=== PATIENT | female | born 1960 | race Two or more races ===

== ENCOUNTER 2024-06-07 19:13 | Emergency (ER) | payer OTHER, SELFPAY ==
[2024-06-07 19:14] VITALS: BMI 29.2
[2024-06-07 19:56] VITALS: BP 158/93; PULSE 65; RESP 16; TEMP 36.6; O2SAT 98
--- NOTE | 2024-06-07 20:01 | XR_ITS ---
Examination: CT brain head without contrast. 2-D sagittal coronal reconstructions Date and time of exam:June 07, 20242020 hrs. Indications: Patient fell today with injury to the head, head pain CTDI: vol (mGy):45.3 DLP: (mGycm):941 Technique: Multiple CT axial sections of the brain have been obtained, 5 mm slice thickness. Contrast has not been administered. 2-D sagittal, coronal reconstructions have been obtained Low dose protocols were performed. One or more of the following dose reduction techniques were used; automated exposure control, adjustment of the mA and/or KV according to patient size, use of iterative reconstruction technique. Findings: No significant ventricular enlargement. Intra-axial or extra-axial hemorrhage density is not seen. No mass effect or midline shift Basal cisterns are not remarkable. Fourth ventricle is midline. Cranial vault intact. Impression: Negative for acute hemorrhage, mass effect or midline shift
--- NOTE | 2024-06-07 20:01 | XR_ITS ---
Examination: CT cervical spine without contrast 2-D sagittal reconstructions 2-D coronal reconstructions 3-D reconstructions. Exam date and time:June 07, 2024 2019 hrs. Indications: Patient fell today with injury to the neck, neck pain CTDI:vol (mGy) 14.1 DLP: (mGycm) 343 Technique: Multiple 2 mm axial sections of the cervical spine have been obtained. The coronal and sagittal reconstructions have been obtained. 3-D reconstructions have been obtained. Low dose protocols were performed. One or more of the following dose reduction techniques were used; automated exposure control, adjustment of the mA and/or KV according to patient size, use of iterative reconstruction technique. Findings: Axial sections demonstrate intact base of the skull. C1 exhibit satisfactory relationship to the odontoid. No acute cervical vertebral body fracture seen. Alignment posterior spinous processes satisfactory. Impression: No acute cervical fracture.
--- NOTE | 2024-06-07 20:01 | XR_ITS ---
Examination: CT chest, without intravenous contrast. Sagittal and coronal 2-D reconstructions. Exam date and time: June 07, 20242020 hrs. Indications: Patient fell today with injury to the right chest, right chest and rib pain CTDI:vol (mGy) 19.9 DLP: (mGycm) 780 Technique: Multiple 3.0 mm axial sections of the chest to been obtained. Bone and lung density settings are obtained. Sagittal and coronal 2-D reconstructions have been obtained. Low dose protocols were performed. One or more of the following dose reduction techniques were used; automated exposure control, adjustment of the mA and/or KV according to patient size, use of iterative reconstruction technique. Findings: Thoracic aorta pulmonary arteries intact AP dimension ascending thoracic area for a 4.3 cm No pneumothorax pulmonary contusion or hemothorax No hemopericardium The manubrium and the body the sternum are intact Satisfactory alignment thoracic vertebral bodies No acute thoracic fracture Acute nondisplaced fracture right fifth sixth ribs anteriorly No visualized liver splenic or renal laceration Visualized abdominal aorta appears intact with no free blood noted in the abdomen Impression: Acute nondisplaced fractures right fifth sixth ribs anteriorly Thoracic aorta pulmonary arteries appear intact on this noncontrast study No hemopericardium, pneumothorax, pulmonary contusion or hemothorax
--- NOTE | 2024-06-07 20:01 | PD.EDRME ---
Rapid Medical Screening Exam [facility] Arrival date/time: 06/07/24 19:13 63F with history of HTN, hypothyroidism, and pre-DM presents to ED with R rib/chest pain and SOB after trip and fall. Chief Complaint: Fall Vital signs: Vital Signs Temperature 98 F 06/07/24 19:56 Pulse Rate 65 06/07/24 19:56 Respiratory Rate 16 06/07/24 19:56 Blood Pressure 158/93 H 06/07/24 19:56 Pulse Oximetry (%) 98 06/07/24 19:56 Oxygen Delivery Method Room Air 06/07/24 19:56
--- NOTE | 2024-06-07 22:04 | PD.EDFALL ---
ED Fall Injury RME/HPI General Chief Complaint: Fall Stated Complaint: RIGHT SIDE RIB PAIN S/P Arrival date/time: 06/07/24 19:13 RME / HPI RME / HPI Narrative: 06/07/24 19:13 63F with history of HTN, hypothyroidism, and pre-DM presents to ED with R rib/chest pain and SOB after trip and fall. ----- Dr. Valentin?s Main ED Evaluation: 63yo female presents to the ED for a fall. 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 She states she was cleaning the shower and when she went to step out of it, she tripped and fell, landing on her right side. She endorses having right rib pain, reporting she had difficulty getting up and her client had to help her get up. She decided to come in for evaluation. She endorses taking ibuprofen, which has helped with her pain. She states she has difficulty taking a deep breath. She denies any extremity pain, headache, neck pain or any other associated symptoms. No known allergies. Related Data Previous Rx's ?Medication ?Instructions ?Recorded lidocaine 5 % topical patch 1 patch topical QDAY #15 ea 06/08/24 Allergies Allergy/AdvReac Type Severity Reaction Status Date / Time No Known Allergies Allergy Verified 06/07/24 19:18 Review of Systems Review of Systems Systems Reviewed: All systems reviewed, normal except as documented Narrative Review of Systems: Gen: No fever, no chills, no weight loss EYES: No discharge, no visual changes, no pain HEENT: No ear pain, no congestion, no sore throat PULM: No shortness of breath, no cough, no congestion CV: No chest pain, no dyspnea on exertion, no palpitations GI: No nausea, no vomiting, no diarrhea, no pain, no constipation : No frequency, no urgency, no dysuria Musc/skel: No joint pain, no back pain, + rib pain Skin: No rash Psyc: No hallucinations, no depression Heme/Lymph: No easy bleeding or bruising tendencies Neuro: No weakness, no headache Past Medical History Social History SMOKING STATUS: Never smoker ED Exam Narrative Physical exam: GENERAL APPEARANCE: alert and oriented x 4, well-developed, well-nourished, no acute distress HEENT: Normocephalic, atraumatic; pupils equal, round, reactive to light; EOMI; mucous membranes pink, moist; oropharynx clear NECK: Supple LUNGS: CTABL; no wheezes, no rales, no rhonchi HEART: Regular rate, regular rhythm; normal S1, S2; no murmurs ABDOMEN: non distended; normal BS; soft, tenderness to the right rib area, no guarding, no rebound; no masses, no organomegaly, no hernia BACK: no CVA tenderness EXTREMITIES: atraumatic; no edema NEUROLOGIC: awake; alert and oriented x4; cranial nerves II-XII grossly intact; no focal sensory or motor deficits PSYCHIATRIC: appropriate mood and affect SKIN: warm, dry, normal color; no rashes Course Quality Measures none Orders Category Date Time Status CT cervical spine wo con Stat Exams 06/07/24 20:[address] chest wo con Stat Exams 06/07/24 20:[address] head/brain wo con Stat Exams 06/07/24 20:01 Completed HYDROcodone*/APAP 5/325 [[place] 5/325] Med 06/08/24 00:48 Discontinued 1 tab PO X1 ONE Lidocaine 5% Patch Med 06/08/24 00:53 Discontinued 1 patch TOP X1 ONE Vital Signs Vital signs: Vital Signs Temperature 98 F 06/07/24 19:56 Pulse Rate 65 06/07/24 19:56 Respiratory Rate 16 06/07/24 19:56 Blood Pressure 158/93 H 06/07/24 19:56 Pulse Oximetry (%) 98 06/07/24 19:56 Oxygen Delivery Method Room Air 06/07/24 19:56 Pulse ox is 98% on room air, which is normal according to my interpretation. Fall MDM Narrative MDM Narrative:: Incentive spirometry provided Patient data External records reviewed:: [facility] previous records (Per chart review, patient has no previous ED visits or admissions to this facility.) Clinical information provided by:: patient Social determinants that could affect healthcare access:: none Patient has the following chronic illnesses:: none How is presenting disease/condition affected by chronic disease/condition?: no chronic disease Evaluation data The following diagnostics were reviewed and interpreted by me:: radiology exam(s) Lab and/or radiology exams considered but not ordered:: none Interpretation Summary: [facility] Signed Patient: MECHE GUEVARA [facility]. Record#: [id number] Birthdate: 1960 Age/Sex: 63 / F Location: [facility] Attending Dr: Ordering Physician: Gurjit Aguirre PA-C Date of Service: 06/07/24 Procedure(s): CT cervical spine wo con Accession Number(s): [id number] cc: Tyshawn Stephens MD; NO PRIMARY/FAMILY,PHYSICIAN; Gurjit Aguirre PA-C~ Examination: CT cervical spine without contrast 2-D sagittal reconstructions 2-D coronal reconstructions 3-D reconstructions. Exam date and time:June 07, 2024 2019 hrs. Indications: Patient fell today with injury to the neck, neck pain CTDI:vol (mGy) 14.1 DLP: (mGycm) 343 Technique: Multiple 2 mm axial sections of the cervical spine have been obtained. The coronal and sagittal reconstructions have been obtained. 3-D reconstructions have been obtained. Low dose protocols were performed. One or more of the following dose reduction techniques were used; automated exposure control, adjustment of the mA and/or KV according to patient size, use of iterative reconstruction technique. Findings: Axial sections demonstrate intact base of the skull. C1 exhibit satisfactory relationship to the odontoid. No acute cervical vertebral body fracture seen. Alignment posterior spinous processes satisfactory. Impression: No acute cervical fracture. Dictated By: Tyshawn Stephens MD Signed By: <Electronically signed by Tyshawn Stephens MD in OV> 06/07/242108 [facility] Signed Patient: MECHE GUEVARA Record#: [id number] Birthdate: 1960 Age/Sex: 63 / F Location: [facility] Attending Dr: Ordering Physician: Gurjit Aguirre PA-C Date of Service: 06/07/24 Procedure(s): CT chest wo con Accession Number(s): [id number] cc: Tyshawn Stephens MD; NO PRIMARY/FAMILY,PHYSICIAN; Gurjit Aguirre PA-C~ Examination: CT chest, without intravenous contrast. Sagittal and coronal 2-D reconstructions. Exam date and time: June 07, 20241 hrs. Indications: Patient fell today with injury to the right chest, right chest and rib pain CTDI:vol (mGy) 19.9 DLP: (mGycm) 780 Technique: Multiple 3.0 mm axial sections of the chest to been obtained. Bone and lung density settings are obtained. Sagittal and coronal 2-D reconstructions have been obtained. Low dose protocols were performed. One or more of the following dose reduction techniques were used; automated exposure control, adjustment of the mA and/or KV according to patient size, use of iterative reconstruction technique. Findings: Thoracic aorta pulmonary arteries intact AP dimension ascending thoracic area for a 4.3 cm No pneumothorax pulmonary contusion or hemothorax No hemopericardium The manubrium and the body the sternum are intact Satisfactory alignment thoracic vertebral bodies No acute thoracic fracture Acute nondisplaced fracture right fifth sixth ribs anteriorly No visualized liver splenic or renal laceration Visualized abdominal aorta appears intact with no free blood noted in the abdomen Impression: Acute nondisplaced fractures right fifth sixth ribs anteriorly Thoracic aorta pulmonary arteries appear intact on this noncontrast study No hemopericardium, pneumothorax, pulmonary contusion or hemothorax Dictated By: Tyshawn Stephens MD Signed By: <Electronically signed by Tyshawn Stephens MD in OV> 06/07/242113 [facility] Signed Patient: MECHE GUEVARA Record#: [id number] Birthdate: 1960 Age/Sex: 63 / F Location: [facility] Attending Dr: Ordering Physician: Gurjit Aguirre PA-C Date of Service: 06/07/24 Procedure(s): CT head/brain wo con Accession Number(s): [id number] cc: Tyshawn Stephens MD; NO PRIMARY/FAMILY,PHYSICIAN; Gurjit Aguirre PA-C~ Examination: CT brain head without contrast. 2-D sagittal coronal reconstructions Date and time of exam:June 07, 2024 202 hrs. Indications: Patient fell today with injury to the head, head pain CTDI: vol (mGy):45.3 DLP: (mGycm):941 Technique: Multiple CT axial sections of the brain have been obtained, 5 mm slice thickness. Contrast has not been administered. 2-D sagittal, coronal reconstructions have been obtained Low dose protocols were performed. One or more of the following dose reduction techniques were used; automated exposure control, adjustment of the mA and/or KV according to patient size, use of iterative reconstruction technique. Findings: No significant ventricular enlargement. Intra-axial or extra-axial hemorrhage density is not seen. No mass effect or midline shift Basal cisterns are not remarkable. Fourth ventricle is midline. Cranial vault intact. Impression: Negative for acute hemorrhage, mass effect or midline shift Dictated By: Tyshawn Stephens MD Signed By: <Electronically signed by Tyshawn Stephens MD in OV> 06/07/242107 Medications / Prescriptions Medications or Prescriptions considered but not ordered:: none Medication administrations:: Medication Administration History Discontinued Medications Hydrocodone Bitart/Acetaminophen (Hydrocodone/Apap 5/325 Tablet) 1 tab PO X1 ONE Stop: 06/08/24 00:49 Last Admin: 06/08/24 01:10 Dose: 1 tab Documented By: LEROY Lidocaine (Lidocaine 5% 1 Patch) 1 patch TOP X1 ONE Stop: 06/08/24 00:54 Last Admin: 06/08/24 01:11 Dose: 1 patch Documented By: LEROY see above, if any Consultations Consultation(s) initiated? (list below): No Diagnosis Fall Differential Diagnosis: other (rib fx, contusion, pulmonary contusion, blunt abdominal trauma) Most likely diagnosis given after review of the tests above:: see below Admission Indicated Admission indicated?: not indicated Admission Request Was there a request for admission?: No Disposition Plan Disposition Plan: Discharge Discharge Attestation Discharge Attestation: The patient and all family members were given an opportunity to ask questions and understood the discharge instructions. Discharge instructions specifically effects, indications for sooner follow up or return to the emergency department, and the expected course of current diagnosis. Patient condition: Stable Discharge Plan Plan Patient Disposition: HOME (Self Care) Prescriptions/Referrals Prescriptions/Med Rec: New lidocaine 5 % adhesive patch,medicated 1 patch topical QDAY Qty: 15 0RF Rx Instructions: leave on most painful area for up to 12 hrs Referrals: No Primary/Family,Physician [Primary Care Provider] - In 1 week Problem List Clinical Impression: Fall, Rib fractures Patient/Caregiver Discharge Instructions Education Materials: ED Rib Fracture Print Language: Thai Stand Alone Forms: [employer] Award Info., Patient Portal Info Letter
[2024-06-08] MEDS: HYDROcodone/APAP 5/325 TABLET 1 TAB PO (01:10)
[2024-06-08] MEDS: LIDOCAINE 5% 1 PATCH TOP (01:11)
[2024-06-08 01:13] VITALS: BP 125/67; PULSE 67; RESP 19; TEMP 36.7; O2SAT 99
== END 2024-06-08 01:14 | disposition home or self-care (01) ==
PROVIDERS: Emergency Provider Emergency Medicine
DX: S22.41XA Multiple fractures of ribs, right side, initial encounter for closed fracture (principal); S09.90XA Unspecified injury of head, initial encounter; S19.9XXA Unspecified injury of neck, initial encounter; W01.0XXA Fall on same level from slipping, tripping and stumbling without subsequent striking against object, initial encounter; Y93.E9 Activity, other interior property and clothing maintenance; Y99.0 Civilian activity done for income or pay
CPT/HCPCS: 70450; 71250; 72125; 99284; A9270

== ENCOUNTER 2024-07-17 15:07 | Emergency (ER) | payer MEDICAID, SELFPAY ==
[2024-07-17 15:16] VITALS: BP 161/92; PULSE 82; RESP 20; TEMP 36.8; O2SAT 97
--- NOTE | 2024-07-17 15:32 | EDNOTE_ITS ---
ED Dental RME/HPI General Chief complaint: Dental/Oral/Throat Stated complaint: HAS ALUMINUM FOIL STUCK IN THROAT Time Seen by Provider: 07/17/24 15:22 Arrival date/time: 07/17/24 15:07 This is a 63-year-old female that comes in with complaints of boil to the back of her throat that got stuck while she was eating a burrito. Patient denies any choking episode. She just feels like something is stuck to her right tonsil. Patient reports that she was poking at it with a fork. Patient denies any past medical history. Patient denies any other complaints. Related Data Previous Rx's ?Medication ?Instructions ?Recorded lidocaine 5 % topical patch 1 patch topical QDAY #15 ea 06/08/24 Allergies Allergy/AdvReac Type Severity Reaction Status Date / Time No Known Allergies Allergy Verified 07/17/24 15:12 Review of Systems Review of Systems Systems Reviewed: All systems reviewed, normal except as documented Past Medical History Social History SMOKING STATUS: Never smoker ED Exam General General appearance: Present alert and in no apparent distress Head Head exam: Present atraumatic Eye Eye exam: Present normal appearance, PERRL and EOMI ENT ENT exam: Present mucous membranes moist and other (Mild erythema to posterior pharynx and right tonsil. Foreign body removed from right tonsil it appeared to be a piece of meat.) Neck Neck exam: Present normal inspection, full ROM and trachea midline Chest Chest inspection: Present normal inspection and symmetric chest wall rise Respiratory Respiratory exam: Present normal lung sounds bilaterally Cardiovascular Cardiovascular exam: Present regular rate, normal rhythm and normal heart sounds Abdominal Exam Abdominal exam: Present soft Extremities Exam Extremities exam: Present normal inspection and full ROM Back Exam Back exam: Present normal inspection and full ROM Neurological Exam Neurological exam: Present alert, oriented X3 and CN II-XII intact Psychiatric Psychiatric exam: Present normal affect and normal mood Skin Skin exam: Present warm, dry, intact and normal color Course Quality Measures none Orders Category Date Time Status Acetaminophen Tab [Tylenol ES Tab] Med 07/17/24 15:32 Discontinued 1,000 mg PO X1 ONE Ibuprofen Tab [Motrin Tab] Med 07/17/24 15:32 Discontinued 800 mg PO X1 ONE Vital Signs Vital signs: Vital Signs Temperature 98.2 F 07/17/24 15:16 Pulse Rate 82 07/17/24 15:16 Respiratory Rate 20 07/17/24 15:16 Blood Pressure 161/92 H 07/17/24 15:16 Pulse Oximetry (%) 97 07/17/24 15:16 Oxygen Delivery Method Room Air 07/17/24 15:16 Dental / Oral MDM Narrative MDM Narrative:: Foreign body removed from right tonsil which appeared to be stuck. It appeared to be a piece of meat. I removed foreign body with some forceps. Patient tolerated procedure well. Patient felt better immediately. Patient told to follow-up with primary provider in 1 to 2 days. Come back to the emergency room if symptoms change or worsen. Patient data External records reviewed:: [facility] previous records Clinical information provided by:: patient Social determinants that could affect healthcare access:: none Patient has the following chronic illnesses:: none How is presenting disease/condition affected by chronic disease/condition?: no chronic disease Evaluation data The following diagnostics were reviewed and interpreted by me:: other (specify) (none ) Lab and/or radiology exams considered but not ordered:: none Interpretation Summary: none Medications / Prescriptions Medications or Prescriptions considered but not ordered:: none Medication administrations:: Medication Administration History Discontinued Medications Acetaminophen (Acetaminophen 500 Mg Tablet) 1,000 mg PO X1 ONE Stop: 07/17/24 15:33 Last Admin: 07/17/24 15:46 Dose: 1,000 mg Documented By: KYLIE Ibuprofen (Ibuprofen Tab 400 Mg Tablet) 800 mg PO X1 ONE Stop: 07/17/24 15:33 Last Admin: 07/17/24 15:46 Dose: 800 mg Documented By: KYLIE see [facility] Consultations Consultation(s) initiated? (list below): No Diagnosis Most likely diagnosis given after review of the tests above:: Foreign body stuck to throat. Admission Indicated Admission indicated?: not indicated Admission Request Was there a request for admission?: No Disposition Plan Disposition Plan: Discharge Discharge Attestation Discharge Attestation: The patient and all family members were given an opportunity to ask questions and understood the discharge instructions. Discharge instructions specifically effects, indications for sooner follow up or return to the emergency department, and the expected course of current diagnosis. Patient condition: Stable Discharge Plan Plan Patient Disposition: HOME (Self Care) Patient condition on transfer: Stable Prescriptions/Referrals Prescriptions/Med Rec: No Action lidocaine 5 % adhesive patch,medicated 1 patch topical QDAY Qty: 15 0RF Rx Instructions: leave on most painful area for up to 12 hrs Problem List Clinical Impression: Foreign body in throat Patient/Caregiver Discharge Instructions Discharge Activity: activity as tolerated Education Materials: ED Pharyngeal Foreign Body, Removed Additional Instructions: Follow up with primary provider in 1-2 days. Come back to ED if symptoms change or worsen. And take Tylenol and ibuprofen for pain. Print Language: Latvian Stand Alone Forms: Yashira Award Info., Patient Portal Info Letter PA/TENNIS BALL COVER C[employer]ER Supervising Physician PA/TENNIS BALL COVER CEMENTER Supervising Physician: [place]
[2024-07-17] MEDS: IBUPROFEN TAB 400 MG TABLET 800 MG PO (15:46)
[2024-07-17] MEDS: ACETAMINOPHEN 500 MG TABLET 1000 MG PO (15:46)
== END 2024-07-17 15:50 | disposition home or self-care (01) ==
PROVIDERS: Emergency Provider Emergency Medicine; PCP Nurse Practitioner
DX: T17.208A Unspecified foreign body in pharynx causing other injury, initial encounter (principal); W44.9XXA Unspecified foreign body entering into or through a natural orifice, initial encounter
CPT/HCPCS: 99282; A9270

== ENCOUNTER → 2024-10-24 | Outpatient (CLI) | payer MEDICAID, SELFPAY ==
--- NOTE | 2024-10-24 13:40 | XR_ITS ---
Examination: Bone densitometry Date and time of exam:October 24, 2024 1344 hours INDICATIONS: Menopause age 49 Technique: Lumbar spine and hip total bone mineralization values of an calculated. Peak reference and age match control results have been displayed. Findings: Lumbar spine total bone mineralization is 1.030 gm/cm2. This is 0.2 standard deviations below peak reference. This is 1.6 standard deviations above age-matched controls. Hip total bone mineralization is 0.967 gm/cm2 This is 0.0 standard deviations at peak reference. This is 1.1 standard deviations above age-matched controls Impression: There is normal mineralization based on lumbar spine measurements. There is normal mineralization based on hip measurements
== END | disposition home or self-care (01) ==
LOC: CDIM 13:20
PROVIDERS: Referring Provider Nurse Practitioner; Visit Provider Nurse Practitioner
DX: M81.0 Age-related osteoporosis without current pathological fracture (principal)
CPT/HCPCS: 77080

== ENCOUNTER → 2024-12-16 | Outpatient (CLI) | payer MEDICAID, SELFPAY ==
--- NOTE | 2024-12-16 | XR_ITS ---
Examination: Knee, left , 3 views Technique: Knee AP, lateral, oblique 3 views Date and time of exam: December 16, 2024 1222 hours INDICATIONS: Left knee pain beginning 7 months ago FINDINGS: Moderate osteoarthritis medial joint space Moderate osteoarthritis patellofemoral joint No fracture Small knee effusion IMPRESSION: Mild to moderate tricompartment osteoarthritis
== END | disposition home or self-care (01) ==
DX: M17.12 Unilateral primary osteoarthritis, left knee (principal)
CPT/HCPCS: 73562

== ENCOUNTER → 2025-02-14 | Outpatient (CLI) | payer MEDICAID, SELFPAY ==
--- NOTE | 2025-02-14 10:45 | XR_ITS ---
Examination: Breast ultrasound, unilateral, left complete Date and time of exam: February 14, 2025 0929 hours INDICATIONS: Outside mammogram September 06, 2024 7 mm focal asymmetry lower inner quadrant left breast Technique: Real-time baker scale ultrasonographic imaging performed left breast including all 4 quadrants as well as nipple retroareolar and axillary region. Findings: Sonographic images left breast Benign cysts 9:00 circumscribed nodule 6 x 6 mm IMPRESSION: BI-RADS Category 3: Probably benign findings Recommend 1 additional 6 month left breast sonogram follow-up to document stability of 9:00 nodule described above
--- NOTE | 2025-02-14 11:15 | XR_ITS ---
Examination: Diagnostic digital mammography, unilateral, left Computer aided detection 3-D breast Tomosynthesis, unilateral Date and time of exam: February 14, 2025 0948 hours INDICATIONS: Outside mammogram September 06, 2024 7 mm focal asymmetry lower inner quadrant left breast Technique: Nonmagnified MLO, CC views of the left breast have been obtained, reconstructed from 3-D Tomosynthesis images. R2 computer aided detection program utilized for evaluation of suspicious masses and/or abnormal calcifications. 3-D Tomosynthesis images obtained. Findings: The breast is heterogeneously dense, which may obscure small masses 9:00 nodule left breast is confirmed partially circumscribed Impression: BI-RADS category 3: Probably benign findings One additional 6 month left mammogram follow-up is needed
== END | disposition home or self-care (01) ==
DX: R92.332 Mammographic heterogeneous density, left breast (principal)
CPT/HCPCS: 76641; 77061; 77065; G0279

== ENCOUNTER 2025-02-16 13:28 | Outpatient (AMB) | payer MEDICAID, SELFPAY ==
[2025-02-16 13:43] VITALS: BP 149/82; PULSE 73; RESP 18; TEMP 36.6; O2SAT 95; BMI 30.3
--- NOTE | 2025-02-16 13:43 | ORTHONT_ITS ---
Vital signs 02/16/25 13:43 Height 1.57 m Height Method Stated Weight 75.296 kg Weight Measurement Method Standing Scale BMI 30.3 BP 149/82 H Blood Pressure Source Automatic Cuff Blood Pressure Location Left Upper Arm Position Sitting Respiration 18 Pulse 73 Pulse Source Monitor Temp 97.8 F Temp Source Temporal Artery Scan Pulse Oximetry (%) 95 Oxygen Delivery Method Room Air Med/Allergies Allergies & Medications Allergies No Known Allergies Allergy (Verified 02/16/25 13:44) Medication Reconciliation No Known Home Medications 02/16/25 [History Confirmed 02/16/25] Exam Exam Patient is in no acute distress and is cooperative with the examination today. Breathing is nonlabored. Patient has a normal mood and affect. Bilateral extremities were evaluated and demonstrates sensation intact to light touch. Palpable pedal pulses are present. No significant edema is present. Bilateral hips were examined. The patient has no pain with log roll of the hips. Internal rotation to 30 degrees and external rotation to 30 degrees is painless. Negative FADIR. Right knee incision is clean dry intact Left knee was examined today. The left knee is in varus alignment. Range of motion from 0-115 degrees. Knee is stable to varus and valgus as well as AP translation with <5mm. Patient has a negative McMurrays. There is no pain with patellofemoral compression and no crepitus noted. The knee is tender to palpation medially. Assessment and Plan Problem List (1) Arthritis of left knee: Status: Acute Plan: Patient is a pleasant 64-year-old female with left knee pain and left knee arthritis. We discussed different treatment options. She has not had any cortisone injections. We will likely do x-rays as the last x-rays are nonweightbearing. She does have significant arthritis. We will see her back for injections. She will need authorization and we will also would like to see weightbearing x-rays Advanced Care Planning Discussion Advance care planning discussed with:: patient Office Procedures GNS Level of Care Nursing/Assessment Patient Status: Initial/New Patient Nursing Assessment/Reassesment: Medication Reconciliation, Update PMH in EMR and Vital Signs Coordination of Care: Complex Care and Chronic Disease 1-5, Education Complex Pt/Fam, Consent,records obtained, informed consent, 1 Ins Authorization, Lab and Imaging orders, Results/Orders obtained and Staff clarify orders Special Needs: Language special needs New Patient Charge New Patient Point Assignment: 1124 New Patient Point Charge: [employer]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) Reason for Visit:: LEFT KNEE PAIN Seen by Clinical Staff ONLY (RN/MA): No Supervisor Frame Sample And Pattern Required: Yes PCP or OBGYN visit in last 3 months: Yes Hx Now: No Do You Feel Safe at Home: Yes Authorities Contacted: N/A Questionairres Past Medical History Past Medical History Have you ever been diagnosed with any of the following: Respiratory Problems Smoking: No Smoking Cessation Counseling: No Smoking Exposure: No Subjective Visit Visit for: new patient and knee Immunization / Flu Flu Vaccine in the Last 12 Months: Yes Flu Vaccine Exclusion Criteria: Already Received History of Present Illness Chief complaint: left knee pain Date of injury / onset of symptoms: 2 YEARS Patient reports that she has been having significant left knee pain for quite a while. Had a history of a right total knee replacement. The left knee is affecting her quality life and happiness. She denies any injections. She has tried anti-inflammatories. Personal History Occupation: RETIRED Red flag PMH: none Pain Pain level (0-10): 8 Pain duration: ALL DAY Pain location: outside (lateral) and anterior Pain quality: dull and aching Pain timing: increases with activity Associated signs & symptoms: weakness and stiffness Ambulatory data Ambulatory device: none Review of Systems Review of Systems: All systems negative unless otherwise noted in HPI.
--- NOTE | 2025-02-16 13:44 | XR_ITS ---
Examination: Bilateral knees 2 views Right lateral knee left lateral knee 2 views Bilateral axial knees single view TECHNIQUE: Bilateral AP knees standing single view, bilateral PA knees standing single view flexion Standing right lateral knee left lateral knee 2 views Bilateral axial knees single view INDICATIONS: Bilateral knee pain 3 years FINDINGS: Moderate osteopenia. Total right knee arthroplasty. Satisfactory alignment. 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
== END 2025-02-16 13:51 | disposition home or self-care (01) ==
LOC: HODSRG 13:28
PROVIDERS: Supervising Provider Orthopaedic Surgery Adult Reconstructive Orthopaedic Surgery; Visit Provider Orthopaedic Surgery Adult Reconstructive Orthopaedic Surgery
DX: M17.12 Unilateral primary osteoarthritis, left knee (principal); M25.562 Pain in left knee; Z96.651 Presence of right artificial knee joint
CPT/HCPCS: 73564; 99204; G0463

== ENCOUNTER → 2025-05-04 | Outpatient (CLI) | payer MEDICAID, SELFPAY ==
--- NOTE | 2025-05-04 07:30 | XR_ITS ---
Examination: Breast ultrasound complete, bilateral Date and time of exam: May 04, 2025, 0729 hours INDICATIONS: Strong family history of breast cancer, sisters, left breast sonogram September 14, 2024 9:00 circumscribed nodule left breast 6 x 6 mm Technique: Real-time grayscale ultrasonographic imaging bilateral breasts, including all 4 quadrants as well as nipple retroareolar and axillary regions. Findings: Sonographic images right breast 6:00 cyst 5 x 6 mm 10:00 cyst 4 x 4 mm No solid nodules Sonographic images left breast 9:00 nodule circumscribed 7 x 5 mm 9:00 cyst 9 x 5 mm 10:00 cyst 5 x 5 mm IMPRESSION: BI-RADS Category 2: Benign findings
== END | disposition home or self-care (01) ==
LOC: CDIM 07:21
DX: R92.8 Other abnormal and inconclusive findings on diagnostic imaging of breast (principal); Z80.3 Family history of malignant neoplasm of breast
CPT/HCPCS: 76641